=== PATIENT | female | born 1945 | race Caucasian/White ===

== ENCOUNTER 2017-11-07 16:02 | Inpatient (IN) ==
[2017-11-07] MEDS ORDERED: ONDANSETRON 4 MG/2 ML VIAL IV STA (16:49)
[2017-11-07] MEDS ORDERED: MORPHINE 4 MG/1 ML VIAL IV STA (16:49)
[2017-11-07] MEDS ORDERED: MORPHINE 4 MG/1 ML VIAL IV PRN (18:51)
[2017-11-07] MEDS ORDERED: ACETAMINOPHEN 325 MG TABLET PO PRN (18:51)
[2017-11-07] MEDS ORDERED: diphenhydrAMINE CAP 25 MG CAPSULE PO PRN (18:51)
[2017-11-07] MEDS ORDERED: guaiFENesin/DM ER 600-30 MG TABLET PO PRN (18:51)
[2017-11-07] MEDS ORDERED: DOCUSATE SODIUM 100 MG CAPSULE PO PRN (18:51)
[2017-11-07] MEDS ORDERED: ONDANSETRON 4 MG/2 ML VIAL IV PRN (18:51)
[2017-11-07] MEDS ORDERED: ALBUTEROL 2.5 MG/3 ML NEB RESP TX PRN (19:03)
[2017-11-07] MEDS ORDERED: DEXTROSE 50% 25 GM/50 ML VIAL IV PRN (19:07)
[2017-11-07] MEDS ORDERED: GLUCAGON 1 MG VIAL IM PRN (19:07)
[2017-11-07 21:31] LABS: Basophils % 0.2 % (0.0-0.8); Eosinophils # 0.1 10*3/uL (0.0-0.87); Eosinophils % 0.4 % (0.00-10.9); Hematocrit 30.4 VOL% (35.7-47.0); Hemoglobin 10.1 GM/DL (12.0-16.0); Immature Granulocytes % 0.6 %; Immature Granulocytes Absolute 0.09 #; Lymphocytes # 4.1 10*3/uL (1.4-4.0); Mean Corpuscular HGB Conc 33.2 GM/DL (32-36); Mean Corpuscular Hemoglobin 29 PG (27-34); Mean Corpuscular Volume 86.9 FL (87-102); Mean Platelet Volume 9.4 FL (9.6-12.0); Monocytes # 1.2 10*3/uL (0.11-0.8); Monocytes % 7.4 % (1.7-12.7); Neutrophils # 10.7 10*3/uL (1.4-7.4); Neutrophils % 66.4 % (38.7-73.9); Platelet Count 237 T/CUMM (130-400); Red Cell Distribution Width 13.4 % (9.3-17.3); White Blood Count 16.2 T/CUMM (4-12)
[2017-11-07 21:41] LABS: Calcium 8.9 MG/DL (8.5-10.1); Osmolality,Calculated 278.7 MOS/KG (273-304); Potassium 4.1 MMOL/L (3.5-5.1)
[2017-11-07] MEDS: SODIUM CHLORIDE 0.9% 1,000 ML IV SCH (22:00)
[2017-11-07] MEDS: clonazePAM 0.5 MG TABLET PO SCH (22:11)
[2017-11-07] MEDS: ZALEPLON 5 MG CAPSULE PO SCH (22:11)
[2017-11-07] MEDS: INSULIN LISPRO 100 UNIT/ML SUBCUT SCH (22:11)
[2017-11-07] MEDS: MORPHINE 4 MG/1 ML VIAL IV PRN (22:17)
[2017-11-08] MEDS: MORPHINE 4 MG/1 ML VIAL IV PRN ×2 (02:10→05:34)
[2017-11-08 05:53] LABS: Basophils % 0.2 % (0.0-0.8); Eosinophils % 0.2 % (0.00-10.9); Hematocrit 28.7 VOL% (35.7-47.0); Hemoglobin 9.5 GM/DL (12.0-16.0); Immature Granulocytes % 0.5 %; Immature Granulocytes Absolute 0.06 #; Lymphocytes # 3.2 10*3/uL (1.4-4.0); Lymphocytes % 25.1 % (21.3-54.2); Mean Corpuscular HGB Conc 33.1 GM/DL (32-36); Mean Corpuscular Hemoglobin 29 PG (27-34); Mean Corpuscular Volume 88.3 FL (87-102); Mean Platelet Volume 9.7 FL (9.6-12.0); Monocytes # 0.9 10*3/uL (0.11-0.8); Monocytes % 7.5 % (1.7-12.7); Neutrophils # 8.3 10*3/uL (1.4-7.4); Neutrophils % 66.5 % (38.7-73.9); Platelet Count 220 T/CUMM (130-400); Red Blood Count 3.25 MC/CUMM (3.8-5.5); Red Cell Distribution Width 13.5 % (9.3-17.3); White Blood Count 12.5 T/CUMM (4-12)
[2017-11-08 06:21] LABS: Calcium 8.6 MG/DL (8.5-10.1); Osmolality,Calculated 273.1 MOS/KG (273-304); Potassium 4.3 MMOL/L (3.5-5.1); Risk Ratio 2.32; Thyroid Stimulating Hormone 2.75 uIU/ml (0.358-3.74); VLDL CHOLESTEROL 18.4 MG/DL
[2017-11-08] MEDS ORDERED: CLINDAMYCIN INJ 900 MG in PREMIX 1 EACH IV ONE (06:30)
[2017-11-08] MEDS ORDERED: MAGNESIUM SULF RIDER 4 GM in PREMIX 1 EACH IV PRN (08:33)
[2017-11-08] MEDS ORDERED: MAGNESIUM SULF RIDER 2 GM in PREMIX 1 EACH IV PRN (08:33)
[2017-11-08] MEDS: PREGABALIN 75 MG CAPSULE PO SCH ×2 (08:53→19:46)
[2017-11-08] MEDS: POTASSIUM CHLORIDE 20 MEQ TABLET PO SCH (08:53)
[2017-11-08] MEDS: PRAVASTATIN 20 MG TABLET PO SCH (08:53)
[2017-11-08] MEDS: clonazePAM 0.5 MG TABLET PO SCH ×2 (08:53→20:29)
[2017-11-08] MEDS: ASPIRIN EC 81 MG TABLET PO SCH (08:53)
[2017-11-08] MEDS: SOLIFENACIN 5 MG TABLET PO SCH (08:54)
[2017-11-08] MEDS: PANTOPRAZOLE 40 MG TABLET PO SCH (08:54)
[2017-11-08] MEDS ORDERED: Vilazodone Hcl [Viibryd] 40 MG PO SCH (09:00)
[2017-11-08] MEDS: INSULIN LISPRO 100 UNIT/ML SUBCUT SCH ×2 (09:26→19:48)
[2017-11-08] MEDS: LISINOPRIL 10 MG TABLET PO SCH (09:33)
[2017-11-08] MEDS ORDERED: BISACODYL 10 MG SUPP RECTAL PRN (11:56)
[2017-11-08] MEDS ORDERED: PROMETHAZINE 25 MG/1 ML VIAL IM PRN (11:56)
[2017-11-08] MEDS ORDERED: MAGNESIUM HYDROXIDE SUSP 30 ML UDCUP PO PRN (11:56)
[2017-11-08] MEDS ORDERED: LACTULOSE 20 GM/30 ML UDCUP PO PRN (11:56)
[2017-11-08] MEDS ORDERED: MORPHINE 4 MG/1 ML VIAL IV PRN ×2 (12:01→12:05)
[2017-11-08] MEDS ORDERED: ONDANSETRON 4 MG/2 ML VIAL IV PRN (12:06)
[2017-11-08] MEDS ORDERED: MORPHINE 10 MG/1 ML VIAL IV PRN (12:06)
[2017-11-08] MEDS ORDERED: GLYCOPYRROLATE 0.4 MG/2 ML VIAL ONE (12:06)
[2017-11-08] MEDS ORDERED: SEVOFLURANE 1 UNIT/15 MINUTE INH ONE (12:06)
[2017-11-08] MEDS ORDERED: ONDANSETRON 4 MG/2 ML VIAL ONE (12:06)
[2017-11-08] MEDS ORDERED: DEXAMETHASONE 10 MG/1 ML VIAL ONE (12:06)
[2017-11-08] MEDS ORDERED: ETOMIDATE 40 MG/20 ML VIAL IV ONE (12:06)
[2017-11-08] MEDS ORDERED: fentaNYL 100 MCG/2 ML VIAL ONE (12:06)
[2017-11-08] MEDS ORDERED: ACETAMINOPHEN 1,000 MG/100 ML VIAL IV ONE (12:07)
[2017-11-08] MEDS ORDERED: PHENYLEPHRINE 1 MG/10 ML SYRINGE IV ONE (12:07)
[2017-11-08] MEDS ORDERED: LACTATED RINGERS 1,000 ML IV ONE (12:07)
[2017-11-08] MEDS ORDERED: NALOXONE 0.4 MG/ML VIAL IV PRN (14:19)
[2017-11-08] MEDS ORDERED: MORPHINE PCA 30 MG/30 ML SYRINGE IV SCH (14:30)
[2017-11-08] MEDS: SODIUM CHLORIDE 0.9% 1,000 ML IV SCH (16:11)
[2017-11-08] MEDS ORDERED: diphenhydrAMINE 50 MG/1 ML VIAL IV ONE (16:41)
[2017-11-08] MEDS: CLINDAMYCIN INJ 900 MG in PREMIX 1 EACH IV SCH (19:38)
[2017-11-08] MEDS: ZALEPLON 5 MG CAPSULE PO SCH (20:29)
[2017-11-09] MEDS: CLINDAMYCIN INJ 900 MG in PREMIX 1 EACH IV SCH ×2 (01:50→10:36)
[2017-11-09 04:59] LABS: Basophils % 0.1 % (0.0-0.8); Hematocrit 24.7 VOL% (35.7-47.0); Hemoglobin 8.5 GM/DL (12.0-16.0); Immature Granulocytes % 0.6 %; Immature Granulocytes Absolute 0.07 #; Lymphocytes # 2.7 10*3/uL (1.4-4.0); Lymphocytes % 23.9 % (21.3-54.2); Mean Corpuscular HGB Conc 34.4 GM/DL (32-36); Mean Corpuscular Hemoglobin 29 PG (27-34); Mean Corpuscular Volume 85.5 FL (87-102); Mean Platelet Volume 9.6 FL (9.6-12.0); Monocytes # 1.3 10*3/uL (0.11-0.8); Monocytes % 11.4 % (1.7-12.7); Neutrophils # 7.1 10*3/uL (1.4-7.4); Platelet Count 192 T/CUMM (130-400); Red Blood Count 2.89 MC/CUMM (3.8-5.5); Red Cell Distribution Width 13.3 % (9.3-17.3); White Blood Count 11.1 T/CUMM (4-12)
[2017-11-09 05:15] LABS: Calcium 8.6 MG/DL (8.5-10.1); Osmolality,Calculated 274.7 MOS/KG (273-304); Potassium 3.8 MMOL/L (3.5-5.1)
[2017-11-09] MEDS: INSULIN LISPRO 100 UNIT/ML SUBCUT SCH ×2 (07:47→17:33)
[2017-11-09] MEDS: PREGABALIN 75 MG CAPSULE PO SCH ×2 (09:43→18:44)
[2017-11-09] MEDS: POTASSIUM CHLORIDE 20 MEQ TABLET PO SCH (09:43)
[2017-11-09] MEDS: SOLIFENACIN 5 MG TABLET PO SCH (09:43)
[2017-11-09] MEDS: PANTOPRAZOLE 40 MG TABLET PO SCH (09:43)
[2017-11-09] MEDS: ASPIRIN EC 81 MG TABLET PO SCH (09:44)
[2017-11-09] MEDS: LISINOPRIL 10 MG TABLET PO SCH (09:44)
[2017-11-09] MEDS: PRAVASTATIN 20 MG TABLET PO SCH (09:44)
[2017-11-09] MEDS: clonazePAM 0.5 MG TABLET PO SCH ×2 (09:44→20:27)
[2017-11-09] MEDS: SODIUM CHLORIDE 0.9% 1,000 ML IV SCH (16:20)
[2017-11-09] MEDS: ZALEPLON 5 MG CAPSULE PO SCH (20:27)
[2017-11-10 05:55] LABS: Hemoglobin 8.2 GM/DL (12.0-16.0)
[2017-11-10] MEDS: SODIUM CHLORIDE 0.9% 1,000 ML IV SCH (09:55)
[2017-11-10] MEDS: INSULIN LISPRO 100 UNIT/ML SUBCUT SCH ×2 (09:56→17:48)
[2017-11-10] MEDS: PANTOPRAZOLE 40 MG TABLET PO SCH (09:58)
[2017-11-10] MEDS: LISINOPRIL 10 MG TABLET PO SCH (09:58)
[2017-11-10] MEDS: ASPIRIN EC 81 MG TABLET PO SCH (09:58)
[2017-11-10] MEDS: POTASSIUM CHLORIDE 20 MEQ TABLET PO SCH (09:58)
[2017-11-10] MEDS: clonazePAM 0.5 MG TABLET PO SCH ×2 (09:59→21:36)
[2017-11-10] MEDS: PREGABALIN 75 MG CAPSULE PO SCH ×2 (09:59→18:15)
[2017-11-10] MEDS: PRAVASTATIN 20 MG TABLET PO SCH (09:59)
[2017-11-10] MEDS: SOLIFENACIN 5 MG TABLET PO SCH (09:59)
[2017-11-10] MEDS: metFORMIN 500 MG TABLET PO SCH (17:48)
[2017-11-10] MEDS: sitaGLIPtin 100 MG TABLET PO SCH (21:36)
[2017-11-10] MEDS: ZALEPLON 5 MG CAPSULE PO SCH (21:36)
[2017-11-11] MEDS: INSULIN LISPRO 100 UNIT/ML SUBCUT SCH ×2 (09:07→17:52)
[2017-11-11] MEDS: ASPIRIN EC 81 MG TABLET PO SCH (09:45)
[2017-11-11] MEDS: metFORMIN 500 MG TABLET PO SCH ×2 (09:45→17:49)
[2017-11-11] MEDS: clonazePAM 0.5 MG TABLET PO SCH ×2 (09:45→20:43)
[2017-11-11] MEDS: SOLIFENACIN 5 MG TABLET PO SCH (09:45)
[2017-11-11] MEDS: POTASSIUM CHLORIDE 20 MEQ TABLET PO SCH (09:45)
[2017-11-11] MEDS: PRAVASTATIN 20 MG TABLET PO SCH (09:45)
[2017-11-11] MEDS: PANTOPRAZOLE 40 MG TABLET PO SCH (09:45)
[2017-11-11] MEDS: sitaGLIPtin 100 MG TABLET PO SCH ×2 (09:46→20:43)
[2017-11-11] MEDS: LISINOPRIL 10 MG TABLET PO SCH (09:47)
[2017-11-11] MEDS: PREGABALIN 75 MG CAPSULE PO SCH ×2 (09:47→19:31)
[2017-11-11] MEDS: ZALEPLON 5 MG CAPSULE PO SCH (20:43)
[2017-11-12 06:39] LABS: Basophils % 0.1 % (0.0-0.8); Eosinophils # 0.2 10*3/uL (0.0-0.87); Eosinophils % 2.5 % (0.00-10.9); Hematocrit 25.7 VOL% (35.7-47.0); Hemoglobin 8.5 GM/DL (12.0-16.0); Immature Granulocytes % 0.5 %; Immature Granulocytes Absolute 0.05 #; Lymphocytes % 21.8 % (21.3-54.2); Mean Corpuscular HGB Conc 33.1 GM/DL (32-36); Mean Corpuscular Hemoglobin 29 PG (27-34); Mean Corpuscular Volume 87.4 FL (87-102); Mean Platelet Volume 9.3 FL (9.6-12.0); Monocytes # 0.9 10*3/uL (0.11-0.8); Monocytes % 9.8 % (1.7-12.7); Neutrophils % 65.3 % (38.7-73.9); Platelet Count 248 T/CUMM (130-400); Red Blood Count 2.94 MC/CUMM (3.8-5.5); Red Cell Distribution Width 13.1 % (9.3-17.3); White Blood Count 9.2 T/CUMM (4-12)
[2017-11-12 07:10] LABS: Albumin 2.8 G/DL (3.4-5.0); Bilirubin,Total 0.6 MG/DL (0.2-1.0); Calcium 8.8 MG/DL (8.5-10.1); Osmolality,Calculated 274.8 MOS/KG (273-304); Potassium 3.7 MMOL/L (3.5-5.1); Total Protein 6.5 G/DL (6.4-8.3)
[2017-11-12 08:37] VITALS: BP 108/58
[2017-11-12] MEDS: PRAVASTATIN 20 MG TABLET PO SCH (08:58)
[2017-11-12] MEDS: SOLIFENACIN 5 MG TABLET PO SCH (08:58)
[2017-11-12] MEDS: clonazePAM 0.5 MG TABLET PO SCH (08:58)
[2017-11-12] MEDS: sitaGLIPtin 100 MG TABLET PO SCH (08:58)
[2017-11-12] MEDS: metFORMIN 500 MG TABLET PO SCH (08:58)
[2017-11-12] MEDS: POTASSIUM CHLORIDE 20 MEQ TABLET PO SCH (08:58)
[2017-11-12] MEDS: ASPIRIN EC 81 MG TABLET PO SCH (08:58)
[2017-11-12] MEDS: PANTOPRAZOLE 40 MG TABLET PO SCH (08:58)
[2017-11-12] MEDS: LISINOPRIL 10 MG TABLET PO SCH (08:58)
[2017-11-12] MEDS: PREGABALIN 75 MG CAPSULE PO SCH (08:59)
[2017-11-12] MEDS: INSULIN LISPRO 100 UNIT/ML SUBCUT SCH (08:59)
== END 2017-11-12 13:58 | disposition home health service (06) | DRG 494 ==
LOC: EDUNIT# → N.ED 16:02 → N.EDINP 18:51 → SUATTDRO 18:51 → N.3E 19:47
PROVIDERS: ADMIT Internal Medicine; ATTEND Internal Medicine